=== PATIENT | female | born 1955 | race Caucasian/White ===

== ENCOUNTER 2017-12-29 11:47 | Emergency (ER) | payer BC ==
[2017-12-29] MEDS ORDERED: Aspirin 81 MG Tab.Chew PO ONE (12:08)
[2017-12-29] MEDS: Nitroglycerin 0.4 MG Tab.SL SL PRN ×3 (12:13→12:24)
[2017-12-29] MEDS ORDERED: Sodium Chloride 0.9% 500 ML IV ONE (12:56)
[2017-12-29] MEDS ORDERED: Sodium Chloride 0.9% 10 ML Syringe FLUSH PRN (13:09)
[2017-12-29] MEDS ORDERED: Iopamidol 755 Mg/ML 100 ML Bottle IVPUSH ONE (13:09)
--- NOTE | 2017-12-29 13:09 | CR ---
Chest: Portable view of the chest was obtained. Comparison: Previous chest x-ray of 10/12/[address] of 03/13/16. Prior chest CT showed multiple small pulmonary nodules. These are too small to visualize on current exam but are likely incidental given that they have not enlarged enough to be seen by chest x-ray. Lungs are currently clear. Heart size and mediastinum are normal. Bony structures are grossly intact. Impression: 1. Incidental findings as noted above. Nothing acute is seen on portable chest x-ray. Diagnostic code #2
[2017-12-29] MEDS ORDERED: Sodium Chloride 0.9% 100 ML IV SCH (13:15)
--- NOTE | 2017-12-29 14:18 | CT ---
CT chest Technique: Multiple axial sections were obtained through the chest. Intravenous contrast was utilized. Study has been performed as a pulmonary angiogram protocol. Comparison: Prior chest CT of 03/13/16. Findings: Pulmonary arteries are well-opacified. No filling defects are seen to indicate pulmonary embolism. Mediastinum and hilar regions show no adenopathy or mass. Coronary artery calcification is seen. No pericardial thickening is seen. Surgical clips are seen from prior cholecystectomy. Cyst is identified off the upper left kidney. Multiple small pulmonary nodules are seen on both sides of the chest which remains stable from previous study. Lungs otherwise are clear. No acute parenchymal densities are seen. Bone window settings shows degenerative spurring within the spine. Impression: 1. Multiple pulmonary nodules within the chest which are fairly stable from previous study. 2. No findings of pulmonary embolism. 3. Other incidental findings. Nothing acute is appreciated. Diagnostic code #2
--- NOTE | 2017-12-29 15:47 | EDM.PDOC ---
ED HPI GENERAL MEDICAL PROBLEM - General Chief Complaint: Chest Pain Stated Complaint: CHEST PAIN Time Seen by Provider: 12/29/17 12:04 Source of Information: Reports: Patient History Limitations: Reports: No Limitations - History of Present Illness INITIAL COMMENTS - FREE TEXT/NARRATIVE: The patient presents with chest pain. This started this morning. It is in the middle of her chest and it radiates to her back. She has some shortness of breath with it. The pain is constant but it gets worse at times. She has no fever or chills. She has no cough. She has no abdominal pain, nausea or vomiting. She had an CT in the past with stents. She has no edema or pain in her legs. She has no history of DVT or PE. Onset: Gradual Duration: Hour(s): Location: Reports: Chest Quality: Reports: Pressure Severity: Moderate Improves with: Reports: None Worsens with: Reports: None Associated Symptoms: Reports: Chest Pain, Shortness of Breath. Denies: Cough, Fever/Chills, Nausea/Vomiting Treatments FACTORY HELPER: Reports: Other (see below) Other Treatments FACTORY HELPER: asa 81 mg at 0730-prior to cp Chest Pain Score (Numeric/FACES): 0 - Related Data Allergies Allergy/AdvReac Type Severity Reaction Status Date / Time Penicillins Allergy Other Verified 12/29/17 12:21 codeine AdvReac Nausea and Verified 12/29/17 12:21 Vomiting morphine AdvReac Fainting Verified 12/29/17 12:21 dairy products Allergy Itching Uncoded 12/29/17 12:21 Home Meds: Home Meds Albuterol [Proair HFA] 2 puff INH Q6H PRN 12/29/17 [History] Esomeprazole [NexIUM] 40 mg PO DAILY 12/29/17 [History] Fluticasone Propionate [24 Hour Allergy Relief] 1 spray NASBOTH BID 12/29/17 [ History] Fluticasone/Vilanterol [Breo Ellipta 200-25 Mcg INH] 1 puff INH DAILY 12/29/17 [ History] Losartan [Cozaar] 25 mg PO BID 12/29/17 [History] Lovastatin 40 mg PO BEDTIME 12/29/17 [History] Montelukast [Singulair] 10 mg PO DAILY 12/29/17 [History] Ranitidine HCl [Ranitidine] 150 mg PO BID PRN 12/29/17 [History] Past Medical History Cardiovascular History: Reports: High Cholesterol, Hypertension, CT, Stents Respiratory History: Reports: Other (See Below) Other Respiratory History: seasonal allergies Genitourinary History: Reports: UTI, Recurrent Musculoskeletal History: Reports: Back Pain, Chronic Neurological History: Reports: CVA Other Neuro History: was not aware of h aving a stroke-was told that by her doctors - Past Surgical History GI Surgical History: Reports: Appendectomy, Cholecystectomy Female Surgical History: Reports: Hysterectomy Social & Family History - Tobacco Use Smoking Status *Q: Never Smoker - Caffeine Use Caffeine Use: Reports: Soda, Tea - Recreational Drug Use Recreational Drug Use: No ED ROS GENERAL - Review of Systems Review Of Systems: See Below Constitutional: Reports: No Symptoms HEENT: Reports: No Symptoms Respiratory: Reports: Shortness of Breath Cardiovascular: Reports: Chest Pain Endocrine: Reports: No Symptoms GI/Abdominal: Reports: No Symptoms : Reports: No Symptoms Musculoskeletal: Reports: No Symptoms Skin: Reports: No Symptoms ED EXAM, GENERAL - Physical Exam Exam: See Below Exam Limited By: No Limitations General Appearance: Alert, No Apparent Distress Ears: Normal External Exam Nose: Normal Inspection Head: Atraumatic, Normocephalic Neck: Normal Inspection Respiratory/Chest: No Respiratory Distress, Lungs Clear, Normal Breath Sounds Cardiovascular: Regular Rate, Rhythm, No Edema, No Murmur GI/Abdominal: Soft, Non-Tender, No Organomegaly Back Exam: Normal Inspection Extremities: Normal Inspection Neurological: Alert, Oriented, No Motor/Sensory Deficits EKG INTERPRETATION EKG Date: 12/29/17 Time: 11:56 Rhythm: Other (sinus tachycardia) Rate (Beats/Min): 108 [place]: Normal P-Wave: Present QRS: Normal ST-T: Depressed (Minimal depression in the lateral leads) QT: Normal Course - Vital Signs Last Recorded V/S: Last Vital Signs Temp 98.0 F 12/29/17 11:54 Pulse 94 12/29/17 15:00 Resp 22 H 12/29/17 15:00 BP 145/83 H 12/29/17 15:00 Pulse Ox 96 12/29/17 15:00 - Orders/Labs/Meds Orders: Active Orders 24 hr Category Date Time Status Cardiac Monitoring [RC] . DIRECTED Care 12/29/17 12:08 Active EKG Documentation Completion [RC] ASDIRECTED Care 12/29/17 15:10 Active EKG Documentation Completion [RC] STAT Care 12/29/17 12:08 Active Oxygen Therapy [RC] PRN Care 12/29/17 12:08 Active EKG 12 Lead [EK] Stat Ther 12/29/17 15:10 Ordered Labs: Laboratory Tests 12/29/17 12/29/17 12/29/17 Range/Units 11:55 11:55 11:55 WBC 11.07 H (3.98-10.04) K/mm3 RBC 4.95 (3.98-5.22) M/mm3 Hgb 15.3 (11.2-15.7) gm/L Hct 45.1 H (34.1-44.9) % MCV 91.1 (79.4-94.8) fl MCH 30.9 (25.6-32.2) pg MCHC 33.9 (32.2-35.5) g/dl RDW Std Deviation 44.1 (36.4-46.3) fL Plt Count 265 (182-369) K/mm3 MPV 8.6 L (9.4-12.3) fl Neut % (Auto) 42.2 (34.0-71.1) % Lymph % (Auto) 47.3 (19.3-51.7) % [place] % (Auto) 9.4 (4.7-12.5) % Eos % (Auto) 0.5 L (0.7-5.8) Baso % (Auto) 0.5 (0.1-1.2) % Neut # (Auto) 4.68 (1.56-6.13) K/mm3 Lymph # (Auto) 5.24 H (1.18-3.74) K/mm3 [place] # (Auto) 1.04 H (0.24-0.36) K/mm3 Eos # (Auto) 0.05 (0.04-0.36) K/mm3 Baso # (Auto) 0.05 (0.01-0.08) K/mm3 Manual Slide Review Abnormal smear D-Dimer, Quantitative 0.40 (0.19-0.59) mg/L Sodium 140 (136-145) mEq/L Potassium 3.5 (3.5-5.1) mEq/L Chloride 103 (98-107) mEq/L Carbon Dioxide 26 (21-32) mEq/L Anion Gap 14.5 (5-15) BUN 10 (7-18) mg/dL Creatinine 0.9 (0.55-1.02) mg/dL Est Cr Clr Drug Dosing 54.53 mL/min Estimated GFR (MDRD) > 60 (>60) mL/min BUN/Creatinine Ratio 11.1 L (14-18) Glucose 75 L (80-115) mg/dL Calcium 9.9 (8.5-10.1) mg/dL Total Bilirubin 0.7 (0.2-1.0) mg/dL AST 83 H (15-37) U/L ALT 61 H (14-59) U/L Alkaline Phosphatase 87 (46-116) U/L Troponin I < 0.017 (0.00-0.056) ng/mL Total Protein 8.0 (6.4-8.2) g/dl Albumin 3.8 (3.4-5.0) g/dl Globulin 4.2 gm/dL Albumin/Globulin Ratio 0.9 L (1-2) 12/29/17 Range/Units 15:26 WBC (3.98-10.04) K/mm3 RBC (3.98-5.22) M/mm3 Hgb (11.2-15.7) gm/L Hct (34.1-44.9) % MCV (79.4-94.8) fl MCH (25.6-32.2) pg MCHC (32.2-35.5) g/dl RDW Std Deviation (36.4-46.3) fL Plt Count (182-369) K/mm3 MPV (9.4-12.3) fl Neut % (Auto) (34.0-71.1) % Lymph % (Auto) (19.3-51.7) % [place] % (Auto) (4.7-12.5) % Eos % (Auto) (0.7-5.8) Baso % (Auto) (0.1-1.2) % Neut # (Auto) (1.56-6.13) K/mm3 Lymph # (Auto) (1.18-3.74) K/mm3 [place] # (Auto) (0.24-0.36) K/mm3 Eos # (Auto) (0.04-0.36) K/mm3 Baso # (Auto) (0.01-0.08) K/mm3 Manual Slide Review D-Dimer, Quantitative (0.19-0.59) mg/L Sodium (136-145) mEq/L Potassium (3.5-5.1) mEq/L Chloride (98-107) mEq/L Carbon Dioxide (21-32) mEq/L Anion Gap (5-15) BUN (7-18) mg/dL Creatinine (0.55-1.02) mg/dL Est Cr Clr Drug Dosing mL/min Estimated GFR (MDRD) (>60) mL/min BUN/Creatinine Ratio (14-18) Glucose (80-115) mg/dL Calcium (8.5-10.1) mg/dL Total Bilirubin (0.2-1.0) mg/dL AST (15-37) U/L ALT (14-59) U/L Alkaline Phosphatase (46-116) U/L Troponin I < 0.017 (0.00-0.056) ng/mL Total Protein (6.4-8.2) g/dl Albumin (3.4-5.0) g/dl Globulin gm/dL Albumin/Globulin Ratio (1-2) Meds: Medications Discontinued Medications Generic Name Dose Route Start Last Admin Trade Name Freq PRN Reason Stop Dose Admin Aspirin 324 mg 12/29/17 12:08 12/29/17 12:15 Aspirin PO 12/29/17 12:09 324 mg ONETIME ONE Administration Sodium Chloride 500 mls @ 1,000 mls/hr 12/29/17 12:56 12/29/17 13:04 Normal Saline IV 12/29/17 13:25 1,000 mls/hr .BOLUS ONE Administration Sodium Chloride 100 mls @ 65 mls/hr 12/29/17 13:15 12/29/17 13:17 Normal Saline IV 65 mls/hr ASDIRECTED MIO Administration Iopamidol 100 ml 12/29/17 13:09 12/29/17 13:17 Isovue-370 (76%) IVPUSH 12/29/17 13:10 100 ml ONETIME ONE Administration Nitroglycerin 0.4 mg 12/29/17 12:08 12/29/17 12:24 Nitrostat SL 12/30/17 12:08 0.4 mg Q5M PRN Administration Chest Pain Sodium Chloride 10 ml 12/29/17 13:09 12/29/17 13:17 Saline Flush FLUSH 10 ml ONETIME PRN Administration IV FLUSH - Re-Assessments/Exams Free Text/Narrative Re-Assessment/Exam: 12/29/17 18:59 I ordered an IV saline lock, aspirin, nitro, EKG, CXR, and labs. Her EKG shows a sinus tachycardia with some minimal depression in the lateral leas. Her CXR looks good. 12/29/17 19:04 His WBC was elevated 11.07. Her D-dimer was negative. Her glucose was low at 75. Her AST was elevated at 83 and her ALT was elevated at 61. Her troponin was negative. She had chest pain that radiates to her back. I was worried about her aorta so I ordered a CT angio of her chest. The CT shows multiple pulmonary nodules within the chest which are fairly stable from previous study. No findings or PE. Other incidental findings. Nothing acute is appreciated. I gave her some dilaudid. She feels better. I did a repeat troponin and it was negative. I will discharge her home. Departure - Departure Time of Disposition: 15:50 Disposition: Home, Self-Care 01 Condition: Good Clinical Impression: Atypical chest pain Instructions: Nonspecific Chest Pain, [id number] Referrals: Madelin Valenzuela PA [Primary Care Provider] - 1 Week Forms: ED Department Discharge Additional Instructions: Take your medication as prescribed. I will call you with the results as soon as I have them. Please return if you are worse. Follow up with Madelin Valenzuela within the week. - My Orders Last 24 Hours: My Active Orders 12/29/17 12:08 Cardiac Monitoring [RC] . DIRECTED EKG Documentation Completion [RC] STAT Oxygen Therapy [RC] PRN 12/29/17 15:10 EKG Documentation Completion [RC] ASDIRECTED EKG 12 Lead [EK] Stat - Assessment/Plan Last 24 Hours: My Active Orders 12/29/17 12:08 Cardiac Monitoring [RC] . DIRECTED EKG Documentation Completion [RC] STAT Oxygen Therapy [RC] PRN 12/29/17 15:10 EKG Documentation Completion [RC] ASDIRECTED EKG 12 Lead [EK] Stat
== END 2017-12-29 16:03 | disposition home or self-care (01) ==
LOC: JD.ED 11:47
DX: R07.89 Other chest pain (principal); I10 Essential (primary) hypertension; E78.00 Pure hypercholesterolemia, unspecified; Z79.899 Other long term (current) drug therapy; Z88.5 Allergy status to narcotic agent; Z91.011 Allergy to milk products; Z88.0 Allergy status to penicillin
CPT/HCPCS: 36415; 71045; 71275; 80053; 84484; 85025; 85379; 93005; 96360; 96361; 99285; A9270; J7030; J7040; J7050; Q9967; 93010; 99284-25

== ENCOUNTER 2020-01-24 04:39 | Emergency (ER) | payer MEDICARE, OTHER ==
[2020-01-24] MEDS ORDERED: Alum Hydrox/Mag Hydrox/Simeth 30 ML, Lidocaine 2% 15 ML PO ONE ×2 (05:05)
--- NOTE | 2020-01-24 05:05 | EDM.PDOC ---
ED HPI GENERAL MEDICAL PROBLEM - General Chief Complaint: ENT Problem Stated Complaint: MOUTH BURNING POSS FROM MEDICATION Time Seen by Provider: 01/24/20 04:56 - History of Present Illness INITIAL COMMENTS - FREE TEXT/NARRATIVE: 64-year-old female presents the emergency room with a burning sensation in her mouth. This is been present since Thursday. The patient finished a course of Zithromax on Thursday and seemed noticed it starting that evening. She was treated for strep throat. The patient has a history of recurrent yeast infections but has not had one in a while. Patient also suffers from gastroesophageal reflux disease and according to the patient this has not been doing good over the last several weeks. She is taking her Nexium and Zantac as directed. Throat Pain Score (Numeric/FACES): 10 - Related Data Allergies Allergy/AdvReac Type Severity Reaction Status Date / Time Penicillins Allergy Other Verified 01/24/20 04:50 codeine AdvReac Nausea and Verified 01/24/20 04:50 Vomiting morphine AdvReac Fainting Verified 01/24/20 04:50 dairy products Allergy Itching Uncoded 01/24/20 04:50 Home Meds: Home Meds Albuterol [Proair HFA] 2 puff INH Q6H PRN 12/29/17 [History] Esomeprazole [NexIUM] 40 mg PO DAILY 12/29/17 [History] Fluticasone Propionate [24 Hour Allergy Relief] 1 spray NASBOTH BID 12/29/17 [ History] Fluticasone/Vilanterol [Breo Ellipta 200-25 Mcg INH] 1 puff INH DAILY 12/29/17 [ History] Losartan [Cozaar] 25 mg PO BID 12/29/17 [History] Lovastatin 40 mg PO BEDTIME 12/29/17 [History] Montelukast [Singulair] 10 mg PO DAILY 12/29/17 [History] Ranitidine HCl [Ranitidine] 150 mg PO BID PRN 12/29/17 [History] Sucralfate [Carafate] 1 gm PO QIDACANDBED #40 cup 01/24/20 [Rx] Past Medical History Cardiovascular History: Reports: High Cholesterol, Hypertension, [place], Stents Respiratory History: Reports: Other (See Below) Other Respiratory History: seasonal allergies Genitourinary History: Reports: UTI, Recurrent Musculoskeletal History: Reports: Back Pain, Chronic Neurological History: Reports: CVA Other Neuro History: was not aware of h aving a stroke-was told that by her doctors - Past Surgical History GI Surgical History: Reports: Appendectomy, Cholecystectomy Female Surgical History: Reports: Hysterectomy Social & Family History - Tobacco Use Smoking Status *Q: Never Smoker Second Hand Smoke Exposure: No - Caffeine Use Caffeine Use: Reports: None - Recreational Drug Use Recreational Drug Use: No ED ROS ENT - Review of Systems Review Of Systems: See Below Constitutional: Reports: No Symptoms HEENT: Reports: Other (Mouth and upper throat pain) Respiratory: Reports: No Symptoms Cardiovascular: Reports: No Symptoms GI/Abdominal: Reports: Other (Worsening reflux) ED EXAM, ENT - Physical Exam Exam: See Below Exam Limited By: No Limitations General Appearance: Alert, No Apparent Distress, Other (His blood pressure was quite elevated but this is starting to come down) Eye Exam: Bilateral Eye: Normal Inspection Ears: Normal External Exam, Normal Canal, Hearing Grossly Normal, Normal TMs Nose: Normal Inspection, Normal Mucousa, No Blood Mouth/Throat: Normal Inspection, Normal Gums, Normal Lips, Normal Oropharynx, Other (Is missing many teeth however there is does not appear to be an acute process going on at this time). No: Dental Abcess, Dental Pain Head: Atraumatic, Normocephalic Neck: Normal Inspection, Supple, Non-Tender, Full Range of Motion. No: Lymphadenopathy (L), Lymphadenopathy (R) Respiratory/Chest: No Respiratory Distress, Lungs Clear, Normal Breath Sounds Cardiovascular: Regular Rate, Rhythm, No Edema, No Murmur Course - Vital Signs Last Recorded V/S: Last Vital Signs Temp 36.7 C 01/24/20 04:47 Pulse 101 H 01/24/20 04:47 Resp 18 01/24/20 04:47 BP 180/98 H 01/24/20 05:20 Pulse Ox 96 01/24/20 04:47 - Orders/Labs/Meds Meds: Medications Discontinued Medications Generic Name Dose Route Start Last Admin Trade Name Freq PRN Reason Stop Dose Admin Al Hydroxide/Mg Hydroxide 30 0 ml 01/24/20 05:05 01/24/20 05:12 ml/ Lidocaine HCl 15 ml PO 01/24/20 05:06 45 ml ONETIME ONE Administration - Re-Assessments/Exams Free Text/Narrative Re-Assessment/Exam: 01/24/20 05:42 Patient had a GI cocktail and is much better at this time. We will give her some Carafate and continue to watch 01/24/20 05:59 Continues to do well blood pressure has continued to improve also we will discharge very shortly I suspect her Zithromax caused increased stomach irritation and has her gastroesophageal reflux disease acting up. We will put her on Carafate for 10 days. Departure - Departure Time of Disposition: 06:00 Disposition: Home, Self-Care 01 Clinical Impression: Gastroesophageal reflux disease - Discharge Information Referrals: Geni De Leon [employer] [Primary Care Provider] - Forms: ED Department Discharge Additional Instructions: Return to the emergency room with any questions problems or worsening symptoms. Follow-up in the clinic in 1 week for recheck sooner if needed. Take the Carafate as directed 60 minutes before your morning noon and evening meals and again at bedtime. Take your other medications 1 hour before taking the Carafate or 2 hours after. Sepsis Event Note - Evaluation Sepsis Screening Result: No Definite Risk - Focused Exam Vital Signs: Vital Signs Temp Pulse Resp BP Pulse Ox 01/24/20 05:20 180/98 H 01/24/20 04:47 36.7 C 101 H 18 198/86 H 96 Date Exam was Performed: 01/24/20 Time Exam was Performed: 05:34
[2020-01-24] MEDS ORDERED: Sucralfate Suspension 1 GM/10 ML Cup PO ONE (05:40)
== END 2020-01-24 06:15 | disposition home or self-care (01) ==
LOC: JD.ED 04:39
DX: K21.9 Gastro-esophageal reflux disease without esophagitis (principal); Z88.0 Allergy status to penicillin; Z88.5 Allergy status to narcotic agent; Z91.011 Allergy to milk products; E78.00 Pure hypercholesterolemia, unspecified; I10 Essential (primary) hypertension; Z86.73 Personal history of transient ischemic attack (TIA), and cerebral infarction without residual deficits; Z79.899 Other long term (current) drug therapy
CPT/HCPCS: 99282; A9270

== ENCOUNTER 2020-01-24 18:03 | Emergency (ER) | payer MEDICARE, OTHER ==
[2020-01-24] MEDS ORDERED: Diphenhydramine/Lidocaine/MagAl/Simethicone 119 ML Bottle PO ONE (18:44)
--- NOTE | 2020-01-24 18:59 | EDM.PDOC ---
ED HPI GENERAL MEDICAL PROBLEM - General Chief Complaint: ENT Problem Stated Complaint: BURNING IN MOUTH FROM POSS INGESTION Time Seen by Provider: 01/24/20 18:43 Source of Information: Reports: Patient, RN Notes Reviewed History Limitations: Reports: No Limitations - History of Present Illness INITIAL COMMENTS - FREE TEXT/NARRATIVE: Patient is a 64-year-old female who presents to the ED for evaluation of mouth burning. Patient states that the roof of her mouth feels like it is on fire. She states that this weekend, she was using some salt/vinegar/distal to kill weeds in her garden, and she ended up getting some on her finger and then inadvertently put her finger in her mouth, and she noted she is having burning in her mouth ever since. Patient is not complaining of any fever/chills, chest pain/shortness of breath, or pain elsewhere, she is able to eat and drink. Oral/Mouth Pain Score (Numeric/FACES): 8 - Related Data Allergies Allergy/AdvReac Type Severity Reaction Status Date / Time Penicillins Allergy Other Verified 01/24/20 04:50 codeine AdvReac Nausea and Verified 01/24/20 04:50 Vomiting morphine AdvReac Fainting Verified 01/24/20 04:50 dairy products Allergy Itching Uncoded 01/24/20 04:50 Home Meds: Home Meds Albuterol [Proair HFA] 2 puff INH Q6H PRN 12/29/17 [History] Esomeprazole [NexIUM] 40 mg PO DAILY 12/29/17 [History] Fluticasone Propionate [24 Hour Allergy Relief] 1 spray NASBOTH BID 12/29/17 [ History] Fluticasone/Vilanterol [Breo Ellipta 200-25 Mcg INH] 1 puff INH DAILY 12/29/17 [ History] Losartan [Cozaar] 25 mg PO BID 12/29/17 [History] Lovastatin 40 mg PO BEDTIME 12/29/17 [History] Montelukast [Singulair] 10 mg PO DAILY 12/29/17 [History] Ranitidine HCl [Ranitidine] 150 mg PO BID PRN 12/29/17 [History] Diphenhyd/Lidocaine/Nystatin [First-Bxn Mouthwash] 15 ml PO Q4H PRN #1 bottle 03 /31/20 [Rx] Sucralfate [Carafate] 1 gm PO QIDACANDBED #40 cup 01/24/20 [Rx] Past Medical History Cardiovascular History: Reports: High Cholesterol, Hypertension, [place], Stents Respiratory History: Reports: Other (See Below) Other Respiratory History: seasonal allergies Genitourinary History: Reports: UTI, Recurrent Musculoskeletal History: Reports: Back Pain, Chronic Neurological History: Reports: CVA Other Neuro History: was not aware of h aving a stroke-was told that by her doctors - Past Surgical History GI Surgical History: Reports: Appendectomy, Cholecystectomy Female Surgical History: Reports: Hysterectomy Social & Family History - Tobacco Use Smoking Status *Q: Never Smoker - Caffeine Use Caffeine Use: Reports: None ED ROS ENT - Review of Systems Review Of Systems: Comprehensive ROS is negative, except as noted in HPI. ED EXAM, ENT - Physical Exam Exam: See Below Exam Limited By: No Limitations General Appearance: Alert, WD/WN, No Apparent Distress Mouth/Throat: Normal Gums, Normal Lips, Normal Oropharynx, Normal Teeth, Other ( mild erythema noted to roof of mouth, this is where the patient states most of the pain is.). No: Dry Mucous Membrane, Oral Ulcers Head: Atraumatic, Normocephalic Neck: Normal Inspection Respiratory/Chest: No Respiratory Distress, Lungs Clear, Normal Breath Sounds, No Accessory Muscle Use, Chest Non-Tender Cardiovascular: Normal Peripheral Pulses, Regular Rate, Rhythm, No Murmur GI/Abdominal: Normal Bowel Sounds, Soft, Non-Tender, No Distention, No Mass Extremities: Normal Inspection, Normal Capillary Refill Neurological: Alert, Oriented, Normal Cognition, No Motor/Sensory Deficits Psychiatric: Normal Affect, Normal Mood Skin: Warm, Dry, Intact, Normal Color, No Rash Course - Vital Signs Last Recorded V/S: Last Vital Signs Temp 98.3 F 01/24/20 18:14 Pulse 100 01/24/20 18:14 Resp BP 190/100 H 01/24/20 18:14 Pulse Ox 93 L 01/24/20 18:14 - Orders/Labs/Meds Meds: Medications Discontinued Medications Generic Name Dose Route Start Last Admin Trade Name Freq PRN Reason Stop Dose Admin Diphenhydr/Magaldrate/Simeth/Lidoca 30 ml 01/24/20 18:44 01/24/20 18:54 First-Mouthwash Blm Susp PO 01/24/20 18:45 30 ml ONETIME ONE Administration - Re-Assessments/Exams Free Text/Narrative Re-Assessment/Exam: 01/24/20 18:59 The patient presents to the ED for the burning on the roof of her mouth. Essentially she has a chemical burn to the roof of her mouth. Will trial Magic mouthwash and have her follow-up with her primary care provider in the next few days to make sure that her symptoms are improving. Was directed to swish and spit the Magic mouthwash and not swish and swallow. Departure - Departure Time of Disposition: 19:00 Disposition: Home, Self-Care 01 Condition: Fair Clinical Impression: Chemical burn of oral mucosa - Discharge Information *PRESCRIPTION DRUG MONITORING PROGRAM REVIEWED*: No *COPY OF PRESCRIPTION DRUG MONITORING REPORT IN PATIENT KENYA: No Prescriptions: Diphenhyd/Lidocaine/Nystatin [First-Bxn Mouthwash] 15 ml PO Q4H PRN #1 bottle PRN Reason: Pain Instructions: Chemical Burn, Adult, [id number] Referrals: Geni De Leon [employer] [Primary Care Provider] - Additional Instructions: You were evaluated in the ER today regarding you the burning sensation in your mouth. Essentially you have a chemical burn on the roof of your mouth. You have been given Magic mouthwash to try, this does have lidocaine in it. Please swish and spit 15 mils by mouth every 4 hours as needed. Do not swallow this medication as it can cause heart arrhythmias. Recommend you follow-up with your primary care provider in the next few days to make sure your symptoms are improving as expected. Please return to the ER at any time if symptoms change or worsen. Sepsis Event Note - Evaluation Sepsis Screening Result: No Definite Risk - Focused Exam Vital Signs: Vital Signs Temp Pulse BP Pulse Ox 01/24/20 18:14 98.3 F 100 190/100 H 93 L Date Exam was Performed: 01/24/20 Time Exam was Performed: 18:54
== END 2020-01-24 19:13 | disposition home or self-care (01) ==
LOC: JD.ED 18:03
DX: T65.891A Toxic effect of other specified substances, accidental (unintentional), initial encounter (principal); T28.5XXA Corrosion of mouth and pharynx, initial encounter; I10 Essential (primary) hypertension; E78.00 Pure hypercholesterolemia, unspecified; I25.2 Old myocardial infarction; Z86.73 Personal history of transient ischemic attack (TIA), and cerebral infarction without residual deficits; Z88.5 Allergy status to narcotic agent; Z91.018 Allergy to other foods; Z88.0 Allergy status to penicillin; Z79.899 Other long term (current) drug therapy
CPT/HCPCS: 99283; A9270; 99282

== ENCOUNTER 2020-02-23 15:17 | Emergency (ER) | payer MEDICARE, OTHER ==
[2020-02-23] MEDS ORDERED: Sodium Chloride 0.9% 10 ML Syringe FLUSH PRN (15:42)
[2020-02-23] MEDS ORDERED: Aspirin 81 MG Tab.Chew PO ONE (15:49)
--- NOTE | 2020-02-23 16:00 | EDM.PDOC ---
ED HPI GENERAL MEDICAL PROBLEM - General Chief Complaint: Chest Pain Stated Complaint: CHEST PAIN, NAUSEA Time Seen by Provider: 02/23/20 15:29 Source of Information: Reports: Patient History Limitations: Reports: No Limitations ( ) - History of Present Illness INITIAL COMMENTS - FREE TEXT/NARRATIVE: Patient is a 64-year-old female who presents to the emergency department with complaints of midsternal chest pain that occasionally radiates through to her back. Symptoms started yesterday afternoon while she was at rest. She was not doing any exertional activities. Patient describes the pain as a constant burning pain with occasional worsening, sharp, stabbing pain. She has a cardiac history significant for an AK which she states was "a long time ago ". She cannot remember exactly when it was, however does states she had a stent placed at that time. She has had no shortness of breath or diaphoresis associated with this. She does have some nausea and acid reflux as well. States that she can "taste in her mouth ". Patient states that she was started on Protonix twice daily back in January by a provider at [facility] in [place] because her "esophagus does not close like it should". She also verbalized that she had an upper GI study done back in December which showed she had ulcerations on her esophagus. She states that she has been having symptoms similar to this, however they started her on Protonix and she was doing okay up until yesterday. She has not had an EGD done thus far, however does have a follow-up appointment scheduled at [facility] in [place] in March. Middle Chest Pain Score (Numeric/FACES): 3 - Related Data Allergies Allergy/AdvReac Type Severity Reaction Status Date / Time Penicillins Allergy Other Verified 02/23/20 15:30 codeine AdvReac Nausea and Verified 02/23/20 15:30 Vomiting morphine AdvReac Fainting Verified 02/23/20 15:30 dairy products Allergy Itching Uncoded 01/24/20 04:50 Home Meds: Home Meds Albuterol [Proair HFA] 2 puff INH Q6H PRN 12/29/17 [History] Fluticasone Propionate [24 Hour Allergy Relief] 1 spray NASBOTH BID 12/29/17 [ History] Fluticasone/Vilanterol [Breo Ellipta 200-25 Mcg INH] 1 puff INH DAILY 12/29/17 [ History] Losartan [Cozaar] 25 mg PO BID 12/29/17 [History] Lovastatin 40 mg PO BEDTIME 12/29/17 [History] Montelukast [Singulair] 10 mg PO DAILY 12/29/17 [History] Docusate Sodium [Colace] 100 mg PO BID PRN 02/23/20 [History] Omeprazole 40 mg PO BID 30 Days #60 capsule. 02/23/20 [Rx] Pantoprazole [ProTONIX] 40 mg PO BID 02/23/20 [History] Sucralfate [Carafate] 1 gm PO Q6H #600 ml 02/23/20 [Rx] Past Medical History Cardiovascular History: Reports: High Cholesterol, Hypertension, AK, Stents Respiratory History: Reports: Other (See Below) Other Respiratory History: seasonal allergies Genitourinary History: Reports: UTI, Recurrent Musculoskeletal History: Reports: Back Pain, Chronic Neurological History: Reports: CVA Other Neuro History: was not aware of h aving a stroke-was told that by her doctors - Past Surgical History GI Surgical History: Reports: Appendectomy, Cholecystectomy Female Surgical History: Reports: Hysterectomy Social & Family History - Tobacco Use Smoking Status *Q: Never Smoker - Caffeine Use Caffeine Use: Reports: Tea - Recreational Drug Use Recreational Drug Use: No ED ROS GENERAL - Review of Systems Review Of Systems: See Below Constitutional: Reports: Chills. Denies: Fever, Weakness, Fatigue, Decreased Appetite HEENT: Reports: Throat Pain, Other (Mouth pain) Respiratory: Reports: No Symptoms Cardiovascular: Reports: Chest Pain. Denies: Lightheadedness, Palpitations, Syncope Endocrine: Reports: No Symptoms GI/Abdominal: Reports: Nausea, Other (Acid reflux). Denies: Abdominal Pain, Vomiting : Reports: No Symptoms Musculoskeletal: Reports: No Symptoms Skin: Reports: No Symptoms Neurological: Reports: No Symptoms Psychiatric: Reports: No Symptoms Hematologic/Lymphatic: Reports: No Symptoms Immunologic: Reports: No Symptoms ED EXAM, GENERAL - Physical Exam Exam: See Below Exam Limited By: No Limitations General Appearance: Alert, WD/WN, No Apparent Distress Throat/Mouth: Normal Inspection, Normal Lips, Normal Teeth, Normal Gums, Normal Oropharynx, Normal Voice, No Airway Compromise Respiratory/Chest: No Respiratory Distress, Lungs Clear, Normal Breath Sounds, No Accessory Muscle Use, Chest Non-Tender Cardiovascular: Normal Peripheral Pulses, Regular Rate, Rhythm, No Edema, No Gallop, No JVD, No Murmur, No Rub GI/Abdominal: Normal Bowel Sounds, Soft, Non-Tender, No Organomegaly, No Distention, No Abnormal Bruit, No Mass Extremities: Normal Inspection, Normal Range of Motion, Non-Tender, Normal Capillary Refill, No Pedal Edema Neurological: Alert, Oriented, CN II-XII Intact, Normal Cognition, Normal Gait, Normal Reflexes, No Motor/Sensory Deficits Psychiatric: Normal Affect, Normal Mood Skin Exam: Warm, Dry, Intact, Normal Color, No Rash EKG INTERPRETATION EKG Date: 02/23/20 Time: 16:07 Rhythm: NSR Rate (Beats/Min): 85 [place]: Normal P-Wave: Present QRS: Normal ST-T: Normal QT: Normal Course - Vital Signs Last Recorded V/S: Last Vital Signs Temp 98.8 F 02/23/20 15:42 Pulse 92 02/23/20 15:42 Resp 18 02/23/20 15:42 BP 158/86 H 02/23/20 15:42 Pulse Ox 98 02/23/20 15:42 - Orders/Labs/Meds Orders: Active Orders 24 hr Category Date Time Status EKG Documentation Completion [RC] STAT Care 02/23/20 15:43 Active Peripheral IV Care [RC] . DIRECTED Care 02/23/20 15:42 Active Peripheral IV Insertion Adult [OM.PC] Stat Oth 02/23/20 15:42 Ordered Labs: Laboratory Tests 02/23/20 02/23/20 02/23/20 Range/Units 15:55 15:55 15:55 WBC 5.10 (3.98-10.04) K/mm3 RBC 4.64 (3.98-5.22) M/mm3 Hgb 14.6 (11.2-15.7) gm/dl Hct 43.1 (34.1-44.9) % MCV 92.9 (79.4-94.8) fl MCH 31.5 (25.6-32.2) pg MCHC 33.9 (32.2-35.5) g/dl RDW Std Deviation 46.6 H (36.4-46.3) fL Plt Count 205 (182-369) K/mm3 MPV 8.8 L (9.4-12.3) fl Neut % (Auto) 56.5 (34.0-71.1) % Lymph % (Auto) 33.1 (19.3-51.7) % [place] % (Auto) 9.6 (4.7-12.5) % Eos % (Auto) 0.2 L (0.7-5.8) Baso % (Auto) 0.4 (0.1-1.2) % Neut # (Auto) 2.88 (1.56-6.13) K/mm3 Lymph # (Auto) 1.69 (1.18-3.74) K/mm3 [place] # (Auto) 0.49 H (0.24-0.36) K/mm3 Eos # (Auto) 0.01 L (0.04-0.36) K/mm3 Baso # (Auto) 0.02 (0.01-0.08) K/mm3 D-Dimer, Quantitative 0.27 (0.19-0.50) mg/L Sodium 143 (136-145) mEq/L Potassium 3.1 L (3.5-5.1) mEq/L Chloride 106 (98-107) mEq/L Carbon Dioxide 22 (21-32) mEq/L Anion Gap 18.1 H (5-15) BUN 3 L (7-18) mg/dL Creatinine 0.8 (0.55-1.02) mg/dL Est Cr Clr Drug Dosing 59.73 mL/min Estimated GFR (MDRD) > 60 (>60) mL/min BUN/Creatinine Ratio 3.8 L (14-18) Glucose 121 H (80-115) mg/dL Calcium 9.5 (8.5-10.1) mg/dL Total Bilirubin 1.0 (0.2-1.0) mg/dL AST 37 (15-37) U/L ALT 40 (14-59) U/L Alkaline Phosphatase 63 (46-116) U/L Troponin I < 0.017 (0.00-0.056) ng/mL Total Protein 7.3 (6.4-8.2) g/dl Albumin 3.8 (3.4-5.0) g/dl Globulin 3.5 gm/dL Albumin/Globulin Ratio 1.1 (1-2) Meds: Medications Discontinued Medications Generic Name Dose Route Start Last Admin Trade Name Juan Jose PRN Reason Stop Dose Admin Aspirin 324 mg 02/23/20 15:49 02/23/20 15:56 Aspirin PO 02/23/20 15:50 324 mg ONETIME ONE Administration Al Hydroxide/Mg Hydroxide 30 0 ml 02/23/20 16:50 02/23/20 17:23 ml/ Lidocaine HCl 15 ml PO 02/23/20 16:51 45 ml ONETIME ONE Administration Sodium Chloride 10 ml 02/23/20 15:42 Saline Flush FLUSH ASDIRECTED PRN Keep Vein Open - Re-Assessments/Exams Free Text/Narrative Re-Assessment/Exam: Based on patient history and exam, it is my suspicion that she is experiencing esophageal spasms, however we will complete a complete cardiac work-up to rule out cardiac and pulmonary involvement. We will do CBC, CMP, troponin, d-dimer, chest x-ray, and EKG. I have also ordered aspirin 324 mg to be given now. 02/23/20 1655 Patient's work-up was grossly unremarkable. Troponin was negative, d-dimer was negative, chest x-ray was normal, EKG was normal. I have ordered a GI cocktail and will reassess the patient for improvement. 02/23/20 1730 After the GI cocktail, patient did still have some burning in her chest, however the sharp stabbing pains did resolve. She is on the highest dose of Protonix available, and despite this she continues to have acid reflux. This leads me to believe that the Protonix is not working. We will have her stop her Protonix and switch her to omeprazole 40 mg twice daily. In addition I have ordered Carafate liquid. Recommend that she follow-up with Dr. Nicole at [facility] in [place] as this is the provider she has been wanting to see. Also recommend that she follow-up with her primary care provider, Cheyenne Bhardwaj. Discharge instructions as documented. Departure - Departure Time of Disposition: 18:06 Disposition: Home, Self-Care 01 Condition: Good Clinical Impression: GERD with esophagitis Prescriptions: Omeprazole 40 mg PO BID 30 Days #60 capsule. Sucralfate [Carafate] 1 gm PO Q6H #600 ml Instructions: Food Choices for Gastroesophageal Reflux Disease, Adult, Gastroesophageal Reflux Disease, Adult, [id number] Referrals: Geni De Leon NP [Primary Care Provider] - Jarod Nicole MD [Ordering Only Provider] - Forms: ED Department Discharge Additional Instructions: You were seen in the emergency department today for a burning chest pain with intermittent sharp stabbing pains that began yesterday. Your work-up included blood work, chest x-ray, and EKG of your heart. Your work-up was found to be normal. You are not having a heart attack and there is no signs of a blood clot in your lungs. As we discussed, the likely source of your pain is your esophagus. I recommend that you stop your daily Protonix as it is not working based on the fact that you are still having acid reflux into your mouth. We will switch you to omeprazole 40 mg twice daily, as well as Carafate 1 g every 6 hours. Take these medications as prescribed. Recommend that you avoid spicy and acidic foods as this will worsen your symptoms. There is an educational packet with recommendations on what type of foods to avoid. Recommend that you call to schedule an appointment with Dr. Nicole at [facility] in [place] tomorrow morning. I also recommend that you follow-up with your primary care provider, Cheyenne De Leon, to monitor your symptoms and make medication adjustments as needed. If you should experience any new or worsening symptoms of concern, please do not hesitate to return to the emergency department. Sepsis Event Note - Evaluation Sepsis Screening Result: No Definite Risk - Focused Exam Vital Signs: Vital Signs Temp Pulse Resp BP Pulse Ox 02/23/20 15:42 98.8 F 92 18 158/86 H 98 02/23/20 15:26 98.8 F 90 18 166/83 H 95 Date Exam was Performed: 02/23/20 Time Exam was Performed: 20:11 - My Orders Last 24 Hours: My Active Orders 02/23/20 15:42 Peripheral IV Care [RC] . DIRECTED Peripheral IV Insertion Adult [OM.PC] Stat 02/23/20 15:43 EKG Documentation Completion [RC] STAT - Assessment/Plan Last 24 Hours: My Active Orders 02/23/20 15:42 Peripheral IV Care [RC] . DIRECTED Peripheral IV Insertion Adult [OM.PC] Stat 02/23/20 15:43 EKG Documentation Completion [RC] STAT
[2020-02-23] MEDS ORDERED: Alum Hydrox/Mag Hydrox/Simeth 30 ML, Lidocaine 2% 15 ML PO ONE ×2 (16:50)
--- NOTE | 2020-02-23 16:55 | CR ---
Chest: 2 views of the chest were obtained. Comparison: Prior chest x-ray of 01/18/20. Heart size at the upper limits of normal. Tortuous thoracic aorta is seen. Lungs are clear with no acute parenchymal change. Scattered degenerative change is noted within the spine. Impression: 1. Nothing acute is appreciated on 2 view chest x-ray. Diagnostic code #1 This report was dictated in MDT
== END 2020-02-23 18:40 | disposition home or self-care (01) ==
LOC: JD.ED 15:17
DX: K21.0 Gastro-esophageal reflux disease with esophagitis (principal); I10 Essential (primary) hypertension; I25.2 Old myocardial infarction; Z88.5 Allergy status to narcotic agent; Z88.0 Allergy status to penicillin; Z91.011 Allergy to milk products; E78.00 Pure hypercholesterolemia, unspecified; Z86.73 Personal history of transient ischemic attack (TIA), and cerebral infarction without residual deficits
CPT/HCPCS: 36415; 71046; 80053; 84484; 85025; 85379; 93005; 99285; A9270

== ENCOUNTER 2022-03-30 23:34 | Emergency (ER) | payer MEDICARE, OTHER ==
[2022-03-30] MEDS ORDERED: Sodium Chloride 0.9% 1,000 ML IV SCH (23:45)
[2022-03-30] MEDS ORDERED: Aspirin 81 MG Tab.Chew PO ONE (23:55)
[2022-03-30] MEDS ORDERED: Nitroglycerin 0.4 MG Tab.SL SL PRN (23:55)
[2022-03-31 00:17] LABS: ESTIMATED GFR > 60 mL/min (>60)
== END 2022-03-31 02:29 | disposition home or self-care (01) ==
LOC: JD.ED 23:34
DX: R07.9 Chest pain, unspecified (principal); I25.10 Atherosclerotic heart disease of native coronary artery without angina pectoris; E78.00 Pure hypercholesterolemia, unspecified; I10 Essential (primary) hypertension; I25.2 Old myocardial infarction; Z86.73 Personal history of transient ischemic attack (TIA), and cerebral infarction without residual deficits; Z88.0 Allergy status to penicillin; Z88.5 Allergy status to narcotic agent; Z91.011 Allergy to milk products; Z91.048 Other nonmedicinal substance allergy status; Z79.899 Other long term (current) drug therapy
CPT/HCPCS: 36415; 71045; 80053; 84484; 85025; 85379; 85610; 85730; 93005; 99285; A9270; J7030

== ENCOUNTER 2023-02-12 08:24 | Day surgery (SDC) | payer MEDICARE, OTHER ==
[~2023-02-12 08:24] MED LIST: Lactated Ringers 1,000 ML IV SCH; Lidocaine 1%/Sod Bicarbonate in NS 8.4% 1 ML Syringe IDERM PRN; Sodium Chloride 0.9% 10 ML Syringe FLUSH PRN; Sodium Chloride 0.9% 10 ML Syringe FLUSH SCH
[2023-02-12] MEDS ORDERED: fentaNYL 100 MCG/2 ML SDV ONE (09:18)
[2023-02-12] MEDS ORDERED: Propofol 200 MG/20 ML SDV ONE ×2 (09:19→09:21)
[2023-02-12] MEDS ORDERED: Lidocaine 1% 8 ML ONE (09:19)
== END 2023-02-12 10:54 | disposition home or self-care (01) ==
LOC: JD.SDS 08:24
PROVIDERS: ATTEND Surgery
DX: Z12.11 Encounter for screening for malignant neoplasm of colon (principal); K64.8 Other hemorrhoids; I11.0 Hypertensive heart disease with heart failure; I50.9 Heart failure, unspecified; J44.9 Chronic obstructive pulmonary disease, unspecified; M19.90 Unspecified osteoarthritis, unspecified site; I15.9 Secondary hypertension, unspecified; I25.10 Atherosclerotic heart disease of native coronary artery without angina pectoris; U07.1 COVID-19; F41.1 Generalized anxiety disorder; E78.00 Pure hypercholesterolemia, unspecified; K64.4 Residual hemorrhoidal skin tags; E66.01 Morbid (severe) obesity due to excess calories; E55.9 Vitamin D deficiency, unspecified; R73.09 Other abnormal glucose; K21.9 Gastro-esophageal reflux disease without esophagitis; B00.9 Herpesviral infection, unspecified; K58.1 Irritable bowel syndrome with constipation; I25.2 Old myocardial infarction; Z88.0 Allergy status to penicillin; Z86.010 Personal history of colon polyps; Z88.6 Allergy status to analgesic agent; Z88.5 Allergy status to narcotic agent; Z79.899 Other long term (current) drug therapy; Z79.84 Long term (current) use of oral hypoglycemic drugs; Z98.890 Other specified postprocedural states; Z68.36 Body mass index [BMI] 36.0-36.9, adult
CPT/HCPCS: J2704; J3010; J3490

== ENCOUNTER 2024-12-23 18:13 | Emergency (ER) | payer MEDICARE, OTHER ==
[2024-12-23] MEDS: Albuterol/Ipratropium 3.0-0.5 MG/3 ML Neb Soln NEB ONE ×2 (19:03→20:25)
[2024-12-23] MEDS: methylPREDNISolone Sodium Succinate 125 MG/2 ML SDV IVPUSH ONE (19:10)
[2024-12-23 19:37] LABS: BASOPHILS ABSOLUTE AUTO 0.1 K/mm3 (0.0-0.2); BASOPHILS PERCENT AUTO 0.5 % (0.0-1.0); EOSINOPHILS PERCENT AUTO 0.1 % (0.0-6.0); HEMATOCRIT 41.4 % (37.0-47.0); HEMOGLOBIN 14.1 gm/dl (12.0-16.0); IMMATURE GRAN ABSOLUTE AUTO 0.02 K/mm3 (0.00-0.05); IMMATURE GRAN PERCENT AUTO 0.2 % (0.0-0.4); LYMPHOCYTES ABSOLUTE AUTO 3.4 K/mm3 (1.0-4.8); LYMPHOCYTES PERCENT AUTO 36.2 % (24.0-44.0); MEAN CORPUSCULAR HEMOGLOBIN 31.8 pg (28.0-32.0); MEAN CORPUSCULAR HGB CONC 34.1 g/dl (32.0-36.0); MEAN CORPUSCULAR VOLUME 93.5 fl (83.0-99.0); MEAN PLATELET VOLUME 8.7 fl (9.4-12.3); MONOCYTES ABSOLUTE AUTO 0.8 K/mm3 (0.0-0.8); MONOCYTES PERCENT AUTO 8.1 % (0.0-8.0); NEUTROPHILS ABSOLUTE AUTO 5.1 K/mm3 (1.8-7.7); NEUTROPHILS PERCENT AUTO 54.9 % (41.0-71.0); PLATELET COUNT,PLT 165 K/mm3 (150-400); RED BLOOD CELL COUNT 4.43 M/mm3 (4.10-5.30); WHITE BLOOD CELL COUNT,WBC 9.28 K/mm3 (3.9-11.3)
[2024-12-23 19:47] LABS: CORONAVIRUS COVID-19 NAA NEGATIVE (NEGATIVE); INFLUENZA A NAA NEGATIVE (NEGATIVE); RESPIRATORY SYNCYTIAL VIR NAA NEGATIVE (NEGATIVE)
[2024-12-23 19:58] LABS: A/G RATIO 0.9 (1-2); ALBUMIN 3.4 g/dl (3.4-5.0); ANION GAP 16.7 (5-15); BUN/CREATININE RATIO 8.8 (14-18); CALCIUM 9.8 mg/dL (8.5-10.1); CREATININE 0.8 mg/dL (0.55-1.02); EST CRCL DRUG DOSING (CG) 55.7 mL/min; POTASSIUM,K 3.7 mEq/L (3.5-5.1); PROTEIN TOTAL,TP 7.2 g/dl (6.4-8.2)
[2024-12-23] MEDS ORDERED: Sodium Chloride 0.9% 500 ML IV SCH (20:15)
[2024-12-23] MEDS: Heparin Sodium 5,000 Units/ML Vial IVPUSH ONE (21:14)
[2024-12-23] MEDS: Heparin Sodium/D5W 250 ML IV SCH (21:15)
== END 2024-12-23 22:00 ==
LOC: JD.ED 18:13
DX: I21.4 Non-ST elevation (NSTEMI) myocardial infarction (principal); J44.1 Chronic obstructive pulmonary disease with (acute) exacerbation; I10 Essential (primary) hypertension; I25.2 Old myocardial infarction; E78.00 Pure hypercholesterolemia, unspecified; E11.9 Type 2 diabetes mellitus without complications; E66.9 Obesity, unspecified; Z90.49 Acquired absence of other specified parts of digestive tract; Z90.710 Acquired absence of both cervix and uterus; Z79.899 Other long term (current) drug therapy; Z79.84 Long term (current) use of oral hypoglycemic drugs; Z79.82 Long term (current) use of aspirin; Z79.51 Long term (current) use of inhaled steroids; Z88.5 Allergy status to narcotic agent; Z91.011 Allergy to milk products; Z91.048 Other nonmedicinal substance allergy status; Z88.0 Allergy status to penicillin; Z91.010 Allergy to peanuts; Z91.018 Allergy to other foods; Z68.33 Body mass index [BMI] 33.0-33.9, adult
CPT/HCPCS: 0241U; 36415; 71046; 80053; 84484; 85025; 85730; 93005; 94640; 96365; 96375; 99285; J1644; J2919; 93010; J7620-GY

== ENCOUNTER 2025-01-20 00:53 | Emergency (ER) | payer MEDICARE, OTHER ==
[2025-01-20 01:12] LABS: BASOPHILS PERCENT AUTO 0.2 % (0.0-1.0); EOSINOPHILS PERCENT AUTO 0.1 % (0.0-6.0); HEMATOCRIT 38.8 % (37.0-47.0); HEMOGLOBIN 12.9 gm/dl (12.0-16.0); IMMATURE GRAN ABSOLUTE AUTO 0.03 K/mm3 (0.00-0.05); IMMATURE GRAN PERCENT AUTO 0.3 % (0.0-0.4); LYMPHOCYTES ABSOLUTE AUTO 2.7 K/mm3 (1.0-4.8); LYMPHOCYTES PERCENT AUTO 30.6 % (24.0-44.0); MEAN CORPUSCULAR HEMOGLOBIN 31.7 pg (28.0-32.0); MEAN CORPUSCULAR HGB CONC 33.2 g/dl (32.0-36.0); MEAN CORPUSCULAR VOLUME 95.3 fl (83.0-99.0); MEAN PLATELET VOLUME 8.6 fl (9.4-12.3); MONOCYTES ABSOLUTE AUTO 0.4 K/mm3 (0.0-0.8); MONOCYTES PERCENT AUTO 4.6 % (0.0-8.0); NEUTROPHILS ABSOLUTE AUTO 5.6 K/mm3 (1.8-7.7); NEUTROPHILS PERCENT AUTO 64.2 % (41.0-71.0); PLATELET COUNT,PLT 193 K/mm3 (150-400); RED BLOOD CELL COUNT 4.07 M/mm3 (4.10-5.30); WHITE BLOOD CELL COUNT,WBC 8.76 K/mm3 (3.9-11.3)
[2025-01-20] MEDS: Ondansetron 4 MG/2 ML SDV IVPUSH ONE (01:15)
[2025-01-20] MEDS: Sodium Chloride 0.9% 500 ML IV ONE (01:15)
[2025-01-20] MEDS: Sodium Chloride 0.9% 10 ML Syringe FLUSH PRN (01:15)
[2025-01-20 01:30] LABS: A/G RATIO 0.8 (1-2); ANION GAP 13.4 (5-15); BILIRUBIN TOTAL 0.8 mg/dL (0.2-1.0); BUN/CREATININE RATIO 8.9 (14-18); CALCIUM 9.2 mg/dL (8.5-10.1); CREATININE 0.9 mg/dL (0.55-1.02); EST CRCL DRUG DOSING (CG) 51.59 mL/min; PROTEIN TOTAL,TP 6.7 g/dl (6.4-8.2)
[2025-01-20 01:36] LABS: POTASSIUM,K 4.4 mEq/L (3.5-5.1)
== END 2025-01-20 03:26 | disposition home or self-care (01) ==
LOC: JD.ED 00:53
DX: M54.50 Low back pain, unspecified (principal); I10 Essential (primary) hypertension; E78.00 Pure hypercholesterolemia, unspecified; J45.909 Unspecified asthma, uncomplicated; E11.9 Type 2 diabetes mellitus without complications; E66.9 Obesity, unspecified; Z88.6 Allergy status to analgesic agent; Z91.011 Allergy to milk products; Z91.010 Allergy to peanuts; Z91.018 Allergy to other foods; Z88.8 Allergy status to other drugs, medicaments and biological substances; Z79.899 Other long term (current) drug therapy; Z90.49 Acquired absence of other specified parts of digestive tract
CPT/HCPCS: 36415; 71045; 72131; 80053; 85025; 87428; 93005; 96361; 96374; 99285; J2405; J7030; 93010; 99284

== ENCOUNTER 2025-08-11 10:56 | Observation (INO) | payer MEDICARE, OTHER ==
[2025-08-11] MEDS ORDERED: Sodium Chloride 0.9% 10 ML Syringe FLUSH PRN (11:00)
[2025-08-11 11:14] LABS: BASOPHILS ABSOLUTE AUTO 0.1 K/mm3 (0.0-0.2); BASOPHILS PERCENT AUTO 0.5 % (0.0-1.0); EOSINOPHILS ABSOLUTE AUTO 0.0 K/mm3 (0.0-0.4); EOSINOPHILS PERCENT AUTO 0.2 % (0.0-6.0); IMMATURE GRAN ABSOLUTE AUTO 0.05 K/mm3 (0.00-0.05); IMMATURE GRAN PERCENT AUTO 0.5 % (0.0-0.4); LYMPHOCYTES ABSOLUTE AUTO 2.0 K/mm3 (1.0-4.8); LYMPHOCYTES PERCENT AUTO 20.2 % (24.0-44.0); MEAN PLATELET VOLUME 8.5 fl (9.4-12.3); MONOCYTES ABSOLUTE AUTO 0.6 K/mm3 (0.0-0.8); MONOCYTES PERCENT AUTO 5.9 % (0.0-8.0); NEUTROPHILS ABSOLUTE AUTO 7.2 K/mm3 (1.8-7.7); NEUTROPHILS PERCENT AUTO 72.7 % (41.0-71.0); NRBC ABSOLUTE 0.00 (0.00-0.02); NRBC PERCENT 0.0 % (0.0-0.2); PLATELET COUNT,PLT 224 K/mm3 (150-400); RED BLOOD CELL COUNT 4.08 M/mm3 (4.10-5.30); WHITE BLOOD CELL COUNT,WBC 9.94 K/mm3 (3.9-11.3)
[2025-08-11 11:44] LABS: A/G RATIO 0.9 (1-2); ALANINE AMINOTRANSFERASE,ALT 21.0 U/L (14-59); ASPARTATE AMNIOTRANSFERASE,AST 27.0 U/L (15-37); BILIRUBIN TOTAL 0.6 mg/dL (0.2-1.0); BLOOD UREA NITROGEN,BUN 9.0 mg/dL (7-18); CARBON DIOXIDE,CO2 24.0 mEq/L (21-32); CHLORIDE,CL 102.0 mEq/L (98-107); CREATININE 1.2 mg/dL (0.55-1.02); EST CRCL DRUG DOSING (CG) 35.05 mL/min; ESTIMATED GFR 48.0 mL/min (>60); GLUCOSE RANDOM 158.0 mg/dL (70-99); POTASSIUM,K 3.4 mEq/L (3.5-5.1); PROTEIN TOTAL,TP 7.5 g/dl (6.4-8.2); SODIUM,NA 142.0 mEq/L (136-145); TROPONIN I HIGH SENSITIVITY 24.0 pg/mL (<=51)
[2025-08-11] MEDS: Diltiazem 180 MG Cap.CD PO SCH (21:56)
[2025-08-12 00:05] LABS: APPEARANCE,URINE CLEAR (Clear); GLUCOSE,URINE NEGATIVE (Negative); OCCULT BLOOD,URINE TRACE-LYSED (Negative)
[2025-08-12 00:34] LABS: SQUAMOUS EPITHELIAL CELLS,UR 0-5 /hpf (0-5)
== END 2025-08-12 15:30 | disposition home or self-care (01) ==
LOC: JD.ED 10:56 → JD.MS 17:19
PROVIDERS: ADMIT Family Medicine; ATTEND Family Medicine
DX: R53.1 Weakness (principal); R26.89 Other abnormalities of gait and mobility; E83.42 Hypomagnesemia; E87.6 Hypokalemia; I25.10 Atherosclerotic heart disease of native coronary artery without angina pectoris; I10 Essential (primary) hypertension; E66.9 Obesity, unspecified; E78.00 Pure hypercholesterolemia, unspecified; E11.9 Type 2 diabetes mellitus without complications; Z95.5 Presence of coronary angioplasty implant and graft; Z88.0 Allergy status to penicillin; Z88.5 Allergy status to narcotic agent; Z79.82 Long term (current) use of aspirin; Z79.01 Long term (current) use of anticoagulants; Z79.899 Other long term (current) drug therapy; Z91.018 Allergy to other foods; Z91.0110 Allergy to milk products, unspecified
CPT/HCPCS: 36415; 70450; 80053; 81001; 82947; 83735; 84484; 85025; 93005; 96361; 96365; 96366; 99285; A9270; G0378; J3475; J7030